=== PATIENT | male | born 1990 | race Caucasian/White ===

== ENCOUNTER 2021-06-24 19:21 | Observation (INO) ==
[2021-06-25] MEDS ORDERED: *HR* HYDROcodone/Acet 5/325 mg TABLET PO PRN (06:20)
[2021-06-25] MEDS ORDERED: MOM Conc 10 ML UD.LIQ PO PRN (06:20)
[2021-06-25] MEDS ORDERED: Naloxone 0.4 MG/ML INJ IVP PRN (06:20)
[2021-06-25] MEDS ORDERED: Melatonin 3 MG TABLET PO PRN (06:20)
[2021-06-25] MEDS ORDERED: Acetaminophen 325 MG TABLET PO PRN (06:20)
[2021-06-25] MEDS ORDERED: Ondansetron 4 MG/2 ML VIAL IVP PRN (06:20)
[2021-06-25] MEDS ORDERED: Td (TENIVAC) Vaccine 0.5 ML VIAL IM ONE (07:57)
[2021-06-25] MEDS: Nicotine 14 MG PATCH.TD24 TD SCH ×2 (09:26→11:27)
[2021-06-25 11:04] VITALS: BP 134/78; PULSE 76; TEMP 97.8; O2SAT 96
[2021-06-25 11:15] LABS: Basophils % 0.3 %; Eosinophils % 0.1 %; Hematocrit 40.2 % (37.5-50.1); Hemoglobin 13.9 g/dL (12.9-16.9); Immature Granulocytes % 0.4 % (0-4); Lymphocytes # 2.2 K/mcL (0.6-4.6); Lymphocytes % 17.6 %; Mean Corpuscular HGB Conc 34.6 g/dL (31.6-35.5); Mean Corpuscular Volume 89.7 fL (83.0-100.0); Mean Platelet Volume 9.1 fL (9.4-12.4); Monocytes % 8.1 %; Neutrophils # 9.3 K/mcL (1.6-8.9); Platelet Count 313 K/mcL (140-400); Red Blood Count 4.48 M/mcL (4.19-5.50); Red Cell Distribution Width 12.5 % (11.5-14.5); Segmented Neutrophils % 73.5 %; White Blood Count 12.7 K/mcL (4.3-11.1)
[2021-06-25 11:34] LABS: BUN/Creatinine Ratio 15 (6-26); Blood Urea Nitrogen 13 mg/dL (6-20); Calcium 9.3 mg/dL (8.6-10.3); Carbon Dioxide 25 mEq/L (23-29); Chloride 106 mEq/L (98-107); Glucose 101 mg/dL (70-105); Osmolality,Calculated 286 (280-300); Potassium 3.7 mEq/L (3.5-5.1); Sodium 138 mEq/L (136-145); eGFR For African Americans > 60 (> 60); eGFR For Non-African Americans > 60 (> 60)
[2021-06-25] MEDS ORDERED: Piperacillin/Tazobactam 3.375 GM in 0.9 % Sodium Chloride Mini Bag 100 ML IVPB SCH (18:00)
== END 2021-06-25 12:41 | disposition home or self-care (01) ==
LOC: 4WAOSI
PROVIDERS: ADMIT Internal Medicine; ATTEND Internal Medicine